=== PATIENT | female | born 1955 | race Caucasian/White ===

== ENCOUNTER 2016-10-02 15:20 | Emergency (ER) | payer OTHER ==
[~2016-10-02 15:20] MED LIST: CALCCHW25 PO; CHOL1CAP6 PO; MAGN1TAB PO; OXYC1SOL5 PO; Z.0.COMMODE-3:1; Z.0.WALKERFRONT
[2016-10-02 15:22] VITALS: BP 156/91; PULSE 105; RESP 12; TEMP 98.4; O2SAT 92
--- NOTE | 2016-10-02 15:42 | PD ---
HPI Chief Complaint: Exposure to Blood/Body Fluids Time Seen by Provider: 15:42 Travel History International Travel<30 days: No Contact w/Intl Traveler<30days: No Traveled to known affect area: No History of Present Illness HPI 61-year-old female presents to the emergency department with blood exposure needlestick injury to her left thumb. She is an employee at [employer]. She was drawing blood and stuck herself in the left thumb with a dirty needle. She was wearing gloves. The source patient is negative for HIV and hepatitis C. The patient herself denies hepatitis or HIV status. She does not know if she is up- to-date on her tetanus vaccination. Allergies to Bactrim. No other modifying factors or associated signs and symptoms. PFSH Past Medical History Heart Rhythm Problems: Yes ("ABNORMAL HEART RHYTHM" STRESS TEST NORMAL: 2011) Cancer: No Cardiovascular Problems: Yes High Cholesterol: Yes Cerebrovascular Accident: No Diabetes: No Endocrine: No Genitourinary: No Hiatal Hernia: No Immune Disorder: No Musculoskeletal: No Neurologic: Yes Psychiatric: No Respiratory: No Migraines: Yes Seizures: No Thyroid Disease: No Ulcer: No Menopausal: Yes : 3 Para: 3 Past Surgical History Gynecologic Surgery: Yes (BLADDER LIFT, CYSTOCELE) Oral Surgery: Yes (TONCILECTOMY) Pacemaker: No Tonsillectomy: Yes Social History Alcohol Use: Yes (SOCIALLY ONLY) Tobacco Use: No Substance Use: No Allergies-Medications (Allergen,Severity, Reaction): Coded Allergies: Bactrim (Verified Allergy, Severe, Nausea/Vomiting, 06/25/15) Reported Meds & Prescriptions Reported Meds & Active Scripts Active Oxycodone/Acetaminophen 5 mg/325 mg 1 Tab Tab 1 Tab PO Q4H PRN Walker Front Wheel (Walkerfront) Device 1 Unit Commode-3:1 Device 1 Unit Reported Magnesium/Chelated Zinc 133.33-5 mg (Magnesium-Zinc) 1 Tab Tab 1 Tab PO DAILY Calcium + D (Calcium Carbonate/Cholecalciferol) Chw 1 Tab PO DAILY Vitamin D-3 (Cholecalciferol) 1,000 Unit Cap 1 Cap PO DAILY Review of Systems Except as stated in HPI: all other systems reviewed are Neg Physical Exam Narrative GENERAL: Well-nourished, well-developed patient, in no acute distress SKIN: Warm and dry. Point, puncture wound to left hand first digit; no erythema , no edema, no drainage. HEAD: Atraumatic. Normocephalic. EYES: Pupils equal and round. No scleral icterus. No injection or drainage. ENT: Mucosa pink and moist. Airway patent. NECK: Trachea midline. CARDIOVASCULAR: Regular rate. RESPIRATORY: No accessory muscle use. GASTROINTESTINAL: Rounded. MUSCULOSKELETAL: No obvious deformities. No clubbing. No cyanosis. No edema. NEUROLOGICAL: Awake and alert. Oriented 3. No obvious cranial nerve deficits. Motor grossly within normal limits. Normal speech. PSYCHIATRIC: Appropriate mood and affect; insight and judgment normal. Data Data Last Documented VS Vital Signs Date Time Temp Pulse Resp B/P Pulse Ox O2 Delivery O2 Flow Rate FiO2 10/02/16 15:22 98.4 105 12 156/91 92 Room Air Orders Tetanus/Diphtheria Tox Adult (Tetanus/Di (10/02/16 16:15) [facility] Medical Decision Making Medical Screen Exam Complete: Yes Emergency Medical Condition: Yes Medical Record Reviewed: Yes Differential Diagnosis Blood exposure, needlestick injury, puncture wound Narrative Course 61-year-old female, [employer] employee, with a dirty needle stick to the left thumb. PEP protocol initiated. Tetanus updated in the ER. Source patient is HIV and hepatitis C negative. Patient declined PEP therapy at this time. Instructed patient to follow up with employee health. Patient is medically cleared and stable for discharge. Discussed reasons to return to the emergency department. Instructed patient to follow up with primary care provider. Patient agrees with treatment plan. The patients vital signs are stable and the patient is stable for outpatient follow-up and treatment. Patient discharged home, stable and in no acute distress. Diagnosis Primary Impression: Needle stick injury of finger of left hand Qualified Code: S61.239A - Needle stick injury of finger of left hand, initial encounter Additional Impression: Employee exposure to blood Referrals: Employ Med Primary Care Physician Patient Instructions: General Instructions, Needle Stick Injuries (ED) Departure Forms: Tests/Procedures, Work Release Enter return to work date: Oct 02, 2016 Additional Instructions: Follow blood exposure protocol instructions Follow-up with employee health Follow-up with primary care Return to emergency department for worsening of symptoms Med/Other Pt SpecificInfo: Prescription(s) given Disposition: 01 DISCHARGE HOME Condition: Stable Mere Curiel Oct 02, 2016 15:42
[2016-10-02] MEDS ORDERED: TETANUS/DIPHTHERIA TOXOID ADULT 0.5 ML VIAL IM ONE (16:15)
== END 2016-10-02 17:00 | disposition home or self-care (01) ==
LOC: NEPB 15:20
DX: S61.032A Puncture wound without foreign body of left thumb without damage to nail, initial encounter (principal); W46.1XXA Contact with contaminated hypodermic needle, initial encounter; Y93.F9 Activity, other caregiving; Y92.239 Unspecified place in hospital as the place of occurrence of the external cause; Y99.0 Civilian activity done for income or pay; Z23 Encounter for immunization
CPT/HCPCS: 90471; 90714